=== PATIENT | male | born 1990 | race Caucasian/White ===

== ENCOUNTER 2020-03-03 12:24 | Emergency (ER) | payer SELFPAY ==
[~2020-03-03] VITALS: Ht 170.2 cm; Wt 104.3 kg
--- NOTE | 2020-03-03 12:37 | NUR ---
Dr Kirk at the bedside for MSE.
[2020-03-03 13:25] VITALS: BP 129/56
--- NOTE | 2020-03-03 13:26 | NUR ---
Verbal discharge info provided by Dr Kirk, but pt left Er prior to receiving discharge paperwork.
== END 2020-03-03 13:28 | disposition home or self-care (01) ==
LOC: ER 12:24
DX: M20.012 Mallet finger of left finger(s) (principal); T14.90XS Injury, unspecified, sequela; Y93.67 Activity, basketball
CPT/HCPCS: 73140; A4663